=== PATIENT | male | born 1970 | race Caucasian/White ===

== ENCOUNTER 2017-08-31 16:50 | Emergency (ER) | payer OTHER ==
[2017-08-31 17:39] LABS: BASOPHILS % 0.2 (0.0-1.5); EOSINOPHILS % 1.3 % (0.0-6.8); MEAN CORPUSCULAR HEMOGLOBIN 30.5 pg (28.0-34.0); MONOCYTES % 3.2 % (0.0-11.0); NEUTROPHILS # 6.6 # k/uL (1.4-7.7)
[2017-08-31 17:58] LABS: eGFR (African) > 60; eGFR (Non-African) > 60
[2017-08-31] MEDS ORDERED: INSULIN REGULAR, HUMAN 100 UNIT/ML 3ML VIAL SQ ONE (18:14)
[2017-08-31] MEDS ORDERED: INSULIN DETEMIR 100 UNIT/ML 3ML PEN.INJCTR SQ ONE (18:20)
--- NOTE | 2017-08-31 18:21 | ED Physician Documentation ---
General Adult - HISTORIAN Historian: patient - HPI Stated Complaint: High Blood Sugar Chief Complaint: General Adult Further Comments: yes (47 year old male patient brought in by with complaints of high blood sugar. Was arrested last night, Patient did not take his HS or AC medications last night or today. Patient unsure of lisinopril or glipizide dose.) - ROS CONST: no problems EYES/ENT: none CVS/RESP: none GI/: none MS/SKIN/LYMPH: none NEURO/PSYCH: denies: headache, fainting, dizziness, tingling, numbness, difficulty walking, difficulty with speech, anxiety, depression, other - PAST HX Past History: hypertension Other History: diabetes Type 2 Allergies/Adverse Reactions: Allergies Allergy/AdvReac Type Severity Reaction Status Date / Time No Known Allergies Allergy Unverified 08/31/17 17:24 Home Medications: Ambulatory Orders Medication Instructions Recorded Aspirin [Lo-Dose Aspirin EC] 81 mg PO 08/31/17 Glipizide 10 mg PO 08/31/17 Insulin Glargine,Hum.rec.anlog 35 unit SQ HS 08/31/17 [Lantus Solostar] Insulin NPH/Reg [Humulin 70-30 25 unit SQ TID 08/31/17 Vial] Lisinopril [Zestril] 10 mg PO 08/31/17 - SOCIAL HX Smoking History: cigarettes Drug Use: marijuana - FAMILY HX Family History: No - VITAL SIGNS Vital Signs: Vital Signs Temp Pulse Resp BP Pulse Ox 98.1 F 75 18 114/72 99 08/31/17 16:50 08/31/17 16:50 08/31/17 16:50 08/31/17 16:50 08/31/17 16:50 - REVIEWED ASSESSMENTS Nursing Assessment Reviewed: Yes Vitals Reviewed: Yes Progress - Progress Progress: Labs reviewed. Patient medicated for hyperglycemia with lantus and Hum R. Patient discharged with Levimer pen ED Results Lab/Radiology - Lab Results Lab Results: Lab Results 08/31/17 08/31/17 17:32 17:32 WBC 8.20 K/ul K/ul (4.00-12.00) RBC 5.02 M/ul M/ul (3.90-5.20) Hgb 15.3 g/dL g/dL (12.0-18.0) Hct 46.2 % % (37.0-53.0) MCV 92.0 fl fl (80.0-100.0) MCH 30.5 pg pg (28.0-34.0) MCHC 33.1 g/dL g/dL (30.0-36.0) RDW 13.8 % % (11.3-14.3) Plt Count 254 K/mm3 K/mm3 (130-400) Neut % (Auto) 80.4 % H % (39.0-79.0) Lymph % (Auto) 14.1 % L % (16.0-50.0) [place] % (Auto) 3.2 % % (0.0-11.0) Eos % (Auto) 1.3 % % (0.0-6.8) Baso % (Auto) 0.2 (0.0-1.5) Neut # (Auto) 6.6 # k/uL # k/uL (1.4-7.7) Lymph # (Auto) 1.2 # k/uL # k/uL (0.6-4.0) [place] # (Auto) 0.3 # k/uL # k/uL (0.0-0.9) Eos # (Auto) 0.1 # k/uL # k/uL (0.0-0.6) Baso # (Auto) 0.0 # k/uL # k/uL (0.0-0.5) Reactive Lymphs % 0.9 % % (0.0-5.0) Reactive Lymphs # 0.1 # k/uL # k/uL (0.0-0.8) Sodium 131 mmol/L L mmol/L (136-145) Potassium 4.6 mmol/L mmol/L (3.5-5.1) Chloride 99 mmol/L mmol/L (98-107) Carbon Dioxide 18 mmol/L L mmol/L (22-30) BUN 14 mg/dL mg/dL (9-20) Creatinine 0.50 mg/dL L mg/dL (0.66-1.25) Estimated Creat Clear 215 Est GFR ( Amer) > 60 (60 - ) Est GFR (Non-Af Amer) > 60 (60 - ) Glucose 490 mg/dL H mg/dL (74-106) Calcium 9.4 mg/dL mg/dL (8.4-10.2) Total Bilirubin 0.3 mg/dL mg/dL (0.2-1.3) AST 17 U/L U/L (15-46) ALT 34 U/L U/L (13-69) Alkaline Phosphatase 71 U/L U/L (38-126) Total Protein 7.4 g/dL g/dL (6.3-8.2) Albumin 4.4 g/dL g/dL (3.5-5.0) - Orders Orders: ED Orders Category Date Time Status ARTERIAL BLOOD GAS Stat Lab 08/31/17 16:50 Ordered CBC/PLATELET/DIFF Stat Lab 08/31/17 17:32 Completed CMP Stat Lab 08/31/17 17:32 Completed UA W/MICRO IF INDICATED Stat Lab 08/31/17 16:57 Ordered Urine drug screen [DRUG SCREEN URINE MEDICAL ONLY] Stat Lab 08/31/17 16:58 Ordered Chem Sticks Med 08/31/17 17:00 Ordered 1 each MC PRN Insulin Detemir [Levemir Flex-Pen] Med 08/31/17 19:00 Ordered 35 unit SQ HS Insulin Regular, Human [Humulin R] Med 08/31/17 18:14 Once 10 unit SQ NOW ONE General Adult Physical Exam - PHYSICAL EXAM GENERAL APPEARANCE: mild distress EENT: eye inspection normal, LEONARDO RESPIRATORY: no resp distress, chest non-tender, breath sounds normal CVS: reg rate & rhythm, heart sounds normal, equal pulses, no murmur, no gallop , PMI nml, no JVD, no friction rub, 24 ABDOMEN: soft, no organomegaly, normal bowel sounds, no abdominal bruit, no distension BACK: normal inspection, no CVA tenderness SKIN: warm/dry, normal color, other (Patient c/o pain under foreskin: Non- circumcised, erythema and white noted under foreskin) EXTREMITIES: non-tender, normal range of motion, no evidence of injury, no edema , J, CABLE TELEVISION TECHNICIAN NEURO: oriented X3, CN's nml as tested, motor nml, sensation nml, mood/affect nml Discharge Clincal Impression: Hyperglycemia, Non compliance w medication regimen, Candidiasis of penis Referrals: Primary Doctor,No [Primary Care Provider] - 2 Days Additional Instructions: Your Lantus was given in the ER 35 units Take your daily medications as prescribed. Candidiasis of penis: Pull back and clean foreskin daily and when applying nystatin powder Apply nystatin powder three times a day to area under foreskin; clean before each application Condition: Stable Disposition: 01 HOME, SELF-CARE Decision to Admit: NO Decision Time: 18:34
[2017-08-31] MEDS ORDERED: 0.9 % SODIUM CHLORIDE 1,000 ML IV ONE (18:22)
[2017-08-31] MEDS ORDERED: INSULIN DETEMIR 100 UNIT/ML 3ML PEN.INJCTR SQ SCH (19:00)
[2017-08-31 20:35] VITALS: BP 114/61
[2017-09-01 06:13] LABS: APPEARANCE,URINE CLEAR (CLEAR); COLOR,URINE YELLOW (YELLOW); OCCULT BLOOD,URINE NEGATIVE (NEGATIVE); UROBILINOGEN URINE 0.2 Eu (0.2-1.0)
[2017-09-01 06:14] LABS: CANNABINOIDS NON NEGATIVE ng/mL (< 50); METHYLENEDIOXYMETHAMPHETAMINE NEGATIVE ng/mL (<500)
[2017-09-01 07:42] LABS: ABG BASE EXCESS -5.1 (-2 - +2); ABG PH 7.35 (7.35-7.45)
== END 2017-08-31 19:15 | disposition home or self-care (01) ==
LOC: ED 16:50
DX: R73.9 Hyperglycemia, unspecified (principal); B37.49 Other urogenital candidiasis; Z91.14 Patient's other noncompliance with medication regimen
CPT/HCPCS: 80053; 85025; J1815; J7030; 36600; 80377; 81002; 82803; 96365; 96372; 99284; G0481; S1016